=== PATIENT | male | born 1935 | race Caucasian/White ===

== ENCOUNTER 2020-10-11 08:36 | Emergency (ER) | payer BC ==
--- NOTE | 2020-10-11 08:39 | ERPHSYRPT ---
- History of Present Illness Time Seen by Provider: 10/11/20 08:39 Source: patient, family Exam Limitations: no limitations Physician History: This is an 85-year-old white male who has a history of hypertension and hypothyroidism who has not taken his medication this morning yet and got up to go to the restroom. He then lost his balance when trying to open the door fell and hit his head and injured his left outstretched hand/wrist Occurred: just prior to arrival Reason for Fall: lost balance Injuries/Pain Location: head, upper extremity (Left wrist) Loss of Consciousness: no loss of consciousness Quality: aching Severity of Pain-Max: mild Severity of Pain-Current: mild Modifying Factors: Improves With: movement Associated Symptoms (Fall): denies symptoms Allergies/Adverse Reactions: Penicillins Allergy (Severe, Verified 10/11/20 08:55) Swelling Home Medications: Amlodipine Besylate [Norvasc] 5 mg PO DAILY 10/11/20 [History] Clopidogrel Bisulfate 75 mg [PLAVIX 75 MG Tablet] 75 mg PO DAILY 10/11/20 [History] Hydralazine HCl 100 mg PO DAILY 10/11/20 [History] Levothyroxine Sodium [Levothyroxine] 125 mcg PO DAILY 10/11/20 [History] Tamsulosin HCl 0.4 mg PO DAILY 10/11/20 [History] Travel Risk - International Travel Have you traveled outside of the country in past 3 weeks: No - Coronavirus Screening Are you exhibiting any of the following symptoms?: No Close contact with a COVID-19 positive Pt in past 14-21 Days: No - Review of Systems Constitutional: No Symptoms Eyes: No Symptoms Ears, Nose, & Throat: No Symptoms Respiratory: No Symptoms Cardiac: No Symptoms Abdominal/Gastrointestinal: No Symptoms Genitourinary Symptoms: No Symptoms Musculoskeletal: Fall, Injury (Left forearm) Skin: No Symptoms Neurological: No Symptoms Psychological: No Symptoms Endocrine: No Symptoms Hematologic/Lymphatic: No Symptoms Immunological/Allergic: No Symptoms All Other Systems: Reviewed and Negative - Past Medical History Pertinent Past Medical History: Yes Neurological History: No Pertinent History ENT History: No Pertinent History Cardiac History: No Pertinent History Respiratory History: No Pertinent History Endocrine Medical History: No Pertinent History Musculoskeletal History: No Pertinent History GI Medical History: No Pertinent History History: No Pertinent History Psycho-Social History: No Pertinent History Male Reproductive Disorders: No Pertinent History - Past Surgical History Past Surgical History: Yes - Nursing Vital Signs Nursing Vital Signs: Initial Vital Signs Temperature 97.8 F 10/11/20 08:46 Pulse Rate 68 10/11/20 08:46 Respiratory Rate 20 10/11/20 08:46 Blood Pressure 183/118 10/11/20 08:46 O2 Sat by Pulse Oximetry 98 10/11/20 08:46 Pain Scale Pain Intensity 8 - Jber Coma Score Best Eye Response (Jber): (4) open spontaneously Best Verbal Response (Jber): (5) oriented Best Motor Response (Jber): (6) obeys commands Franc Total: 15 - Physical Exam General Appearance: no apparent distress, alert, anxiety Head Injury: tenderness (Mild over the area of right forehead abrasion) Eye Exam: PERRL/EOMI, eyes nml inspection ENT Exam: airway nml, nml ext.inspection, No evidence of ENT injury Neck Exam: supple, trachea midline, full range of motion, normal alignment, normal inspection Respiratory/Chest Exam: No chest tenderness, No respiratory distress Gastrointestinal Exam: No tenderness Rectal Exam: not done Back Exam: normal inspection, normal range of motion, No CVA tenderness Extremity Exam: pelvis stable, deformities (Wrist), limited range of motion (Left wrist), evidence of injury (Left wrist), tenderness (Left wrist) Neurologic Exam: alert, oriented x 3, cooperative, account resolution expert II-XII nml as tested, normal mood/affect, nml cerebellar function, nml station & gait, sensation nml, motor deficits Skin Exam: normal color, warm, dry SpO2 Interpretation: normal O2 Delivery: Room Air - Course Nursing assessment & vital signs reviewed: Yes Ordered Tests: Active Orders 24 hr Category Date Time Status HEAD WITHOUT CONTRAST [CT] Stat Exams 10/11/20 09:03 Taken WRIST (MIN 3 VIEWS) Stat Exams 10/11/20 09:02 Taken - Progress Progress Note: 10/11/20 09:55 Left short arm wrist splint placed. Post placement neurovascularly intact 10/11/20 09:55 CAT scan of the head without contrast shows diffuse atrophy and chronic/remote ischemic changes without evidence of superimposed acute infarct hemorrhage or mass-effect. There is no acute intracranial injury. Counseled pt/family regarding: diagnosis, need for follow-up, rad results - Departure Departure Disposition: Home Clinical Impression: Fall with injury, Left wrist fracture Condition: Stable Critical Care Time: No Referrals: ARMANI HERNANDEZ [Primary Care Provider] - [facility] [id number] Additional Instructions: Ice pack to forehead and left wrist 2-3 times a day for the next 48 hours. Follow-up in the [facility] orthopedic clinic on 10/13/2020 at 8 AM for further management of the left wrist fracture. Continue your medications as prescribed Prescriptions: Hydrocodone/APAP 5/325 [[place]iz[place] 5/325 mg] 1 each PO Q8H PRN PRN #6 tablet MDD 3 PRN Reason: Pain
[2020-10-11 08:55] VITALS: O2SAT 98
[2020-10-11 09:49] VITALS: BP 179/114; PULSE 57
--- NOTE | 2020-10-11 19:43 | XRAY ---
Indication: Pain following fall. Comparison: None 3 view left wrist demonstrates nondisplaced non-angulated transverse fracture distal diaphysis radius, displaced ulnar styloid fracture, and soft tissue swelling. Elsewhere osteopenia and heavy scattered vascular calcifications.
--- NOTE | 2020-10-11 19:45 | XRAY ---
Indication: Head injury following fall. Multiple contiguous axial images obtained through the head without contrast. Comparison: None Age-appropriate global atrophy and mild periventricular degenerative micro-ischemia bilaterally. No acute intracranial hemorrhage, abnormal extra-axial fluid collection, or mass effect. Fourth ventricle is midline without hydrocephalus. Bony calvarium intact. Visualized paranasal sinuses and mastoid air cells are clear. Impression: Nonacute senile brain. Comment: Preliminary interpretation was made by [facility]. No critical discrepancy.
== END 2020-10-11 10:28 | disposition home or self-care (01) ==
LOC: ED 08:36
DX: S62.102A Fracture of unspecified carpal bone, left wrist, initial encounter for closed fracture (principal); W18.39XA Other fall on same level, initial encounter; Y93.89 Activity, other specified; Y92.89 Other specified places as the place of occurrence of the external cause; I10 Essential (primary) hypertension; E03.9 Hypothyroidism, unspecified; Z79.899 Other long term (current) drug therapy
CPT/HCPCS: 29126; 70450; 73110; 99284; A4570